=== PATIENT | female | born 1955 | race Caucasian/White ===

== ENCOUNTER 2019-08-25 19:23 | Emergency (ER) | payer MEDICARE, OTHER, SELFPAY ==
[2019-08-25 19:26] VITALS: BP 124/72; PULSE 69; RESP 22; TEMP 36.6; O2SAT 95; BMI 42.9
--- NOTE | 2019-08-25 19:36 | XR_ITS ---
WS: [id number] CHEST XRAY TECHNIQUE: Portable chest. CLINICAL INFORMATION: cough COMPARISON: None. FINDINGS: Heart: Cardiomegaly. Esophageal hiatal hernia with air-fluid level. Lungs: Chronic emphysematous changes. No acute pulmonary infiltrates. Bones: Thoracic curve convex left. Hypertrophic changes thoracic spine. Cholecystectomy clips. XR/XR chest 1V portable [id number] IMPRESSION: 1. Cardiomegaly with esophageal hiatal hernia. 2. No acute pulmonary infiltrates.
--- NOTE | 2019-08-25 19:36 | XR_ITS ---
WS: [id number] ANKLE RIGHT TECHNIQUE: 2 views of the right ankle CLINICAL INFORMATION: fall/injury COMPARISON: None. FINDINGS: Diffuse soft tissue edema. Tibiotalar fracture dislocation with lateral dislocation angulation of the tibial plafond. Comminuted fractures involving the distal fibula and medial malleolus. Anterior tibi al plafond fracture. Diffuse soft tissue edema. Plantar calcaneal spurring. XR/XR ankle RT 2V [id number] IMPRESSION: 1. Tibiotalar fracture dislocation described above with diffuse soft tissue ed julianna.
--- NOTE | 2019-08-25 19:36 | CTR_ITS ---
PROCEDURE INFORMATION: Exam: CT Thoracic Spine Without Contrast Exam date and time: 08/25/2019 8:24 PM Age: 64 years old Clinical indication: Injury or trauma; Fall; Initial encounter; Blunt trauma (contusions or hematomas); Injury details: PT fell 10 ft off porch, railing broke; Additional info: Fall/injury TECHNIQUE: Imaging protocol: Computed tomography images of the thoracic spine without contrast. Total DLP: 2166.1 mGy-cm Radiation optimization: All CT scans at this facility use at least one of these dose optimization techniques: automated exposure control; mA and/or kV adjustment per patient size (includes targeted exams where dose is matched to clinical indication); or iterative reconstruction. COMPARISON: No relevant prior studies available. FINDINGS: Yxkm-ze-gasrnxsr degenerative changes are present in the thoracic spine. No thoracic spine fracture is seen. Spinal alignment is normal A large hiatal hernia is noted. CT/CT thoracic spin wo con* [id number] IMPRESSION: 1. No thoracic spine fracture. 2. Large hiatal hernia. Radiation Dose CTDIVOL = (mGy): DLP = 2166.1 (mGy-cm)
--- NOTE | 2019-08-25 19:36 | XR_ITS ---
WS: [id number] FEMUR RIGHT TECHNIQUE: 2 views of the right femur CLINICAL INFORMATION: fall/injury COMPARISON: None. FINDINGS: Right hip appears normal. Soft tissue overlap. Proximal right femur and distal femur appear normal. R ight TKA. Femoral shaft appears normal. Patellar resurfacing. No evidence of hardware loosening. XR/XR femur RT min 2V* [id number] IMPRESSION: No acute fractures
--- NOTE | 2019-08-25 19:36 | CTR_ITS ---
PROCEDURE INFORMATION: Exam: CT Lumbar Spine Without Contrast Exam date and time: 08/25/2019 8:24 PM Age: 64 years old Clinical indication: Injury or trauma; Fall; Initial encounter; Blunt trauma (contusions or hematomas); Injury details: PT fell 10 ft off porch, railing broke; Additional info: Pain/injury TECHNIQUE: Imaging protocol: Computed tomography images of the lumbar spine without contrast. Total DLP: 2041.69 mGy-cm Radiation optimization: All CT scans at this facility use at least one of these dose optimization techniques: automated exposure control; mA and/or kV adjustment per patient size (includes targeted exams where dose is matched to clinical indication); or iterative reconstruction. COMPARISON: No relevant prior studies available. FINDINGS: [place]taf-xe-[place] degenerative changes are present in the lumbar spine. Mild anterolisthesis of L4 over L5 is noted. Moderate to severe canal stenosis is observed at L4-L5 secondary to chronic changes. Tiny calcifications lateral to the tips of the right L3 and L4 transverse processes may represent avulsion fractures. Anteroposterior hairline lucency in the S1 vertebra is also seen which may represent a fracture or prominent vascular channel. CT/CT lumbar spine wo con* [id number] IMPRESSION: 1. Right L3 and L4 transverse process tip avulsion fractures, age indeterminate. 2. Hairline fracture versus prominent vascular channel in the S1 vertebra. Radiation Dose CTDIVOL = (mGy): DLP = 2041.69 (mGy-cm)
--- NOTE | 2019-08-25 19:37 | CTR_ITS ---
PROCEDURE INFORMATION: Exam: CT Chest With Contrast Exam date and time: 08/25/2019 8:42 PM Age: 64 years old Clinical indication: Injury or trauma; Fall; Initial encounter; Abrasion; Injury details: PT fell 10 ft off [employer] broke TECHNIQUE: Imaging protocol: Computed tomography of the chest with intravenous contrast. Total DLP: 1952.37 mGy-cm Radiation optimization: All CT scans at this facility use at least one of these dose optimization techniques: automated exposure control; mA and/or kV adjustment per patient size (includes targeted exams where dose is matched to clinical indication); or iterative reconstruction. Contrast material: VISIPAQUE 320; Contrast volume: 95 ml; Contrast route: IV; COMPARISON: CT scan of the thoracic spine from earlier today. FINDINGS: Lungs: See Heart finding. Pleural space: Unremarkable. No pneumothorax. No pleural effusion. Heart: The heart is normal in size. Right basilar subsegmental atelectasis is appreciated. No evidence of acute lung injury. Mediastinum: A large hiatal hernia is present. Aorta: Unremarkable. No aortic aneurysm. Lymph nodes: Unremarkable. No enlarged lymph nodes. Bones/joints: Right 4th-9th rib fractures are appreciated. Soft tissues: Unremarkable. IMPRESSION: 1. Right 4th-8th rib fractures. No pneumothorax or acute lung injury. 2. Large hiatal hernia. PROCEDURE INFORMATION: Exam: CT Abdomen And Pelvis With Contrast Exam date and time: 08/25/2019 8:42 PM Age: 64 years old Clinical indication: Injury or trauma; Fall; Initial encounter; Abrasion; Injury details: PT fell 10 ft off [place] TECHNIQUE: Imaging protocol: Computed tomography of the abdomen and pelvis with intravenous contrast. Total DLP: 1952.37 mGy-cm Radiation optimization: All CT scans at this facility use at least one of these dose optimization techniques: automated exposure control; mA and/or kV adjustment per patient size (includes targeted exams where dose is matched to clinical indication); or iterative reconstruction. Contrast material: VISIPAQUE 320; Contrast volume: 95 ml; Contrast route: IV; COMPARISON: CT scan of the lumbar spine from earlier today. FINDINGS: Liver: Normal. No evidence of injury. Gallbladder and bile ducts: The gallbladder has been removed. No biliary ductal dilatation. Pancreas: Normal. No ductal dilation. Spleen: Normal. No evidence of injury. Adrenals: Normal. No mass. Kidneys and ureters: Normal. No hydronephrosis. Stomach and bowel: Unremarkable. No obstruction. No mucosal thickening. Appendix: The appendix is normal. Intraperitoneal space: Unremarkable. No free air. No significant fluid collection. Vasculature: Unremarkable. No abdominal aortic aneurysm. Lymph nodes: Unremarkable. No enlarged lymph nodes. Bladder: Unremarkable as visualized. Reproductive: The uterus is absent. Bones/joints: Slightly offset fractures of the right superior and inferior pubic rami are noted. A lot lucency in the S1 vertebra is again seen. The right SI joint is slightly widened. Small calcifications lateral to the right L3 and L4 transverse processes may represent avulsion fractures. Soft tissues: Small 6 mm oblong hyperdensity in the right lower anterior abdominal wall may be a small hematoma. CT/CT chest abd pel w con* IMPRESSION: 1. No evidence of acute visceral injury in the abdomen or pelvis. 2. Right L3 and L4 transverse process avulsion fractures, possible S1 vertebral body hairline fracture, right superior and inferior pubic rami fractures, and mild right SI joint widening. Radiation Dose CTDIVOL = (mGy): DLP = 1952.37~1952.37 (mGy-cm)
--- NOTE | 2019-08-25 19:37 | CTR_ITS ---
PROCEDURE INFORMATION: Exam: CT Head Without Contrast Exam date and time: 08/25/2019 8:24 PM Age: 64 years old Clinical indication: Injury or trauma; Fall; Initial encounter; Blunt trauma (contusions or hematomas); Consciousness not specified; Injury details: PT fell 10 ft off porch, railing broke; Additional info: [place]/ams TECHNIQUE: Imaging protocol: Computed tomography of the head without contrast. Total DLP: 844.24 mGy-cm Radiation optimization: All CT scans at this facility use at least one of these dose optimization techniques: automated exposure control; mA and/or kV adjustment per patient size (includes targeted exams where dose is matched to clinical indication); or iterative reconstruction. COMPARISON: No relevant prior studies available. FINDINGS: Brain: Mild atrophy and mild white matter chronic microvascular changes are noted. No hemorrhage or CT evidence of acute infarction is seen. Ventricles: Normal. No ventriculomegaly. Bones/joints: Unremarkable. No acute fracture. Sinuses: Visualized sinuses are unremarkable. No fluid levels. Mastoid air cells: Visualized mastoid air cells are well aerated. Soft tissues: Mild soft tissue swelling is seen in the scalp at the vertex. CT/CT head wo con* [id number] IMPRESSION: No acute intracranial abnormality. Radiation Dose CTDIVOL = (mGy): DLP = 844.24 (mGy-cm)
--- NOTE | 2019-08-25 19:37 | CTR_ITS ---
PROCEDURE INFORMATION: Exam: CT Cervical Spine Without Contrast Exam date and time: 08/25/2019 8:24 PM Age: 64 years old Clinical indication: Injury or trauma; Fall; Initial encounter; Blunt trauma; Injury details: PT fell 10 ft off porch, railing broke; Additional info: Pain TECHNIQUE: Imaging protocol: Computed tomography images of the cervical spine without contrast. Total DLP: 639.63 mGy-cm Radiation optimization: All CT scans at this facility use at least one of these dose optimization techniques: automated exposure control; mA and/or kV adjustment per patient size (includes targeted exams where dose is matched to clinical indication); or iterative reconstruction. COMPARISON: No relevant prior studies available. FINDINGS: Degenerative changes are seen in the cervical spine consisting primarily of multilevel bilateral [id number]-rf-ocwasqhr facet osteoarthritis. No canal stenosis. No cervical spine fracture is visualized. Spinal alignment is normal. CT/CT cervical spin wo con* [id number] IMPRESSION: No cervical spine fracture. Radiation Dose CTDIVOL = (mGy): DLP = 639.63 (mGy-cm)
[2019-08-25] MEDS: ondansetron 2 mg/ML SDV 2 mL 4 MG IVP (19:55)
[2019-08-25 19:56] VITALS: RESP 18
[2019-08-25] MEDS: morphine 4 mg/mL SDV 1 mL IVP (19:56)
--- NOTE | 2019-08-25 19:59 | W.ED.FALL ---
HPI - Fall General: Chief Complaint: Fall Stated Complaint: fall Time Seen by Provider: 08/25/19 19:31 History of Present Illness: HPI Narrative: Shari is a 64-year-old female who comes in complaining of right sided pain after she fell off of her porch. The railing gave way causing her to fall approximately 8 to 10 feet landing on her right side. The patient complains of diffuse right-sided pain. She is uncertain if she had loss of consciousness but does not believe so. She denies being on blood thinners. She denies any other complaints or concerns. She complains of chest pain, flank pain, right hip and leg pain. Review of Systems General: Reports: 10 or more systems reviewed and unremarkable except in HPI and below PFSH ED PFSH: Medical History Diabetes mellitus Hypertension Social History Smoking and tobacco status: never smoked Physical Exam Const: COMMON NORMALS: no apparent distress, oriented x3, no limitations, healthy appearing and well nourished EXAM LIMITATIONS: no altered mental status GENERAL APPEARANCE: cooperative, well kempt and well developed ORIENTATION/CONSCIOUSNESS: Yes awake HENMT: COMMON NORMALS: normocephalic, head/scalp atraumatic, hearing grossly normal bilaterally, external ears normal, EAC's normal, external nose normal and moist oral mucous membranes HEAD & SCALP: normal to inspection, normocephalic and atraumatic FACE & SINUS: normal facial exam and face symmetric NOSE: external nose normal and nares normal EXTERNAL EAR: Yes external ears normal EXTERNAL AUDITORY CANAL: EAC's normal MOUTH: oral and palatal mucosa normal and tongue normal Eye: COMMON NORMALS: PERRL, EOMs intact bilaterally, conjunctivae normal and no scleral icterus GENERAL EYE: normal appearance of both eyes and normal light reflex CONJUNCTIVA: Yes conjunctivae normal SCLERA: sclerae normal CORNEA: Yes corneas normal PUPIL: Yes PERRL DIRECT OPHTHALMOSCOPY: Yes normal light reflex Neck/C-Spine: COMMON NORMALS: full ROM, no lymphadenopathy, supple, no meningeal signs and no JVD GENERAL: Yes normal visual inspection and Yes trachea midline CERVICAL SPINE: Yes cervical ROM normal Chest: COMMONS NORMALS: inspection of chest normal and palpation of chest normal Resp: COMMON NORMALS: normal respiratory effort, no retractions, no use of accessory muscles and clear to auscultation bilaterally EFFORT & INSPECTION: Yes able to speak in complete sentences AUSCULTATION: clear to auscultation bilaterally Cardio: COMMON NORMALS: no JVD, regular rate, regular rhythm, S1 normal heart sound, S2 normal heart sound, no gallops, no clicks, no murmurs and no rub JUGULAR VENOUS DISTENTION: no JVD RATE: regular rate RHYTHM: regular rhythm HEART SOUNDS: S1 normal and S2 normal GI: COMMON NORMALS: soft to palpation, no hepatosplenomegaly and no masses PALPATION: Yes soft, Yes tender (Mild diffusely) and Yes no hepatosplenomegaly Back/Pelvis: THORACIC SPINE/UPPER BACK: Yes thoracic spinal tenderness LUMBAR SPINE/LOWER BACK: Yes lumbar spinal tenderness PELVIS: Yes no pain with anterior-posterior compression and Yes tenderness over symphysis pubis Extremity: NARRATIVE EXTREMITY EXAM: Left lower extremity without injury or complaint. Right lower extremity in a flexed position at the hip and knee. No pain on palpation of the leg until the ankle. Ankle has a gross deformity but is neurovascularly intact distal. There are areas of abrasion noted cannot rule out open fracture. Patient has pain at the pubic symphysis. Neuro: COMMON NORMALS: oriented x3, CN's II-XII intact bilaterally, moves all extremities, no focal motor deficits and no sensory deficits noted MENINGEAL SIGNS: Yes no meningeal signs Psych: APPEARANCE: Yes well kempt Skin: COMMON NORMALS: no rashes or lesions noted, skin turgor normal, no jaundice, no petechiae and no mottling GENERAL SKIN EXAM: no rashes or lesions noted and turgor normal Procedures Orthopedic Fracture Reduction Fracture #1: Time Out Performed: Yes Side: right Fracture Reduction Location: tibia Analgesia: procedural sedation Technique: direct manipulation Post Reduction X-rays Demonstrate: anatomical reduction Post-reduction neuro exam: intact Post-reduction vascular exam: intact Splint Applied: Yes Patient Tolerated Procedure: well and no complications Procedural Sedation Indication: fracture/dislocation reduction ASA Class: II Preparation: monitoring specialist applied, pulse oximeter, supplemental O2 applied, suction/airway equipment at bedside and IV secured IV Propofol dose (mg): 150 Patient Tolerated Procedure: well Complications: none Course Vital Signs: Vital signs: Vital Signs Temperature 97.8 F 08/25/19 19:26 Pulse Rate 73 08/25/19 22:14 Respiratory Rate 18 08/25/19 22:14 Blood Pressure 116/63 08/25/19 22:14 Pulse Oximetry 95 08/25/19 22:14 MDM - Fall MDM Narrative: Medical decision making narrative: The case was reviewed with Dr. Bassett, with the patient's pelvic fracture he thinks that she will need transfer to a tertiary care facility. Patient chooses to go to [facility] in [place]. We will check on air ambulance services but we do not believe they are flying secondary to weather. We will attempt to contact [facility]. The case was reviewed with Dr. Corona at [facility] ER, he agrees accept the patient in transfer. We will not place the patient in a pelvic binder but just secured to not allow for any movement of her pelvis during transfer. We will do this with traditional wrapping with sheet. Post reduction x-rays reveal improved alignment from previous. I leave that a bone fragment is prohibiting me from getting 90 degrees at the ankle. I think this is likely to be fixed and surgery as I am unable to get her foot to 90 degrees but there is no lateral subluxation/dislocation and there is minimal subluxation on the lateral view. Lab Data: Attestation: I reviewed the patient's lab results. Labs: Lab Results 08/25/19 08/25/19 08/25/19 Range/Units 20:02 20:02 20:02 WBC 15.3 H (4.0-10.0) 10^3/ uL RBC 3.54 L (4.1-5.3) 10^6/u L Hgb 10.8 L (11.5-15.3) g/dL Hct 34.7 L (37.0-47.0) % MCV 98.0 (81-99) fL MCH 30.5 (28.0-34.0) pg MCHC 31.1 (30.0-36.0) g/dL RDW 13.6 (12.1-15.1) % Plt Count 231 (130-400) 10^3/c mm MPV 10.9 H (7.4-10.4) fL Neut % (Auto) 81.2 % Lymph % (Auto) 11.6 % [place] % (Auto) 4.5 % Eos % (Auto) 1.0 % Baso % (Auto) 0.3 % Neut # (Auto) 12.4 H (1.8-7.7) 10^3/u L Lymph # (Auto) 1.8 (0.8-4.8) 10^3/u L [place] # (Auto) 0.7 (0.2-0.9) 10^3/u L Eos # (Auto) 0.2 (0.0-0.8) 10^3/u L Baso # (Auto) 0.1 (0.0-0.1) 10^3/u L Nucleated RBC % (a uto) 0 % Nucleated RBCs # 0.0 /100WBC PT 13.50 H (10.5-13.3) SECO NDS INR 1.03 (0.8-1.2) APTT (23.9-36.7) SECO NDS Sodium 136 (136-145) mmol/L Potassium 4.6 (3.5-5.1) mmol/L Chloride 102 (98-107) mmol/L Carbon Dioxide 24 (22-29) mmol/L Anion Gap 14.6 (5-19) BUN 24 H (8-23) mg/dL Creatinine 1.2 H (0.5-0.9) mg/dL GFR Calculation 44.9 L (90-130) mL/min Glucose 154 H (65-115) mg/dL Calculated Osmolal ity 282 L (285-295) mOsm/k g Calcium 9.1 (8.5-10.5) mg/dL Total Bilirubin 0.4 (0.15-1.2) mg/dL AST 109 H (0-32) U/L ALT 72 H (0-33) U/L Alkaline Phosphata se 60 (35-105) IU/L Total Protein 6.3 L (6.6-8.7) g/dL Albumin 3.4 L (3.5-5.2) g/dL Globulin 2.9 (1.3-4.6) g/dL 08/25/19 Range/Units 20:02 WBC (4.0-10.0) 10^3/ uL RBC (4.1-5.3) 10^6/u L Hgb (11.5-15.3) g/dL Hct (37.0-47.0) % MCV (81-99) fL MCH (28.0-34.0) pg MCHC (30.0-36.0) g/dL RDW (12.1-15.1) % Plt Count (130-400) 10^3/c mm MPV (7.4-10.4) fL Neut % (Auto) % Lymph % (Auto) % [place] % (Auto) % Eos % (Auto) % Baso % (Auto) % Neut # (Auto) (1.8-7.7) 10^3/u L Lymph # (Auto) (0.8-4.8) 10^3/u L [place] # (Auto) (0.2-0.9) 10^3/u L Eos # (Auto) (0.0-0.8) 10^3/u L Baso # (Auto) (0.0-0.1) 10^3/u L Nucleated RBC % (a uto) % Nucleated RBCs # /100WBC PT (10.5-13.3) SECO NDS INR (0.8-1.2) APTT 25.6 (23.9-36.7) SECO NDS Sodium (136-145) mmol/L Potassium (3.5-5.1) mmol/L Chloride (98-107) mmol/L Carbon Dioxide (22-29) mmol/L Anion Gap (5-19) BUN (8-23) mg/dL Creatinine (0.5-0.9) mg/dL GFR Calculation (90-130) mL/min Glucose (65-115) mg/dL Calculated Osmolal ity (285-295) mOsm/k g Calcium (8.5-10.5) mg/dL Total Bilirubin (0.15-1.2) mg/dL AST (0-32) U/L ALT (0-33) U/L Alkaline Phosphata se (35-105) IU/L Total Protein (6.6-8.7) g/dL Albumin (3.5-5.2) g/dL Globulin (1.3-4.6) g/dL Imaging Data^: CT Head: Radiologist's impression: [address] [address] [address] Scan Report Signed Patient: Belen Espinoza Unit #: [id number] : 1955 Age/Sex: 64 / F ADM Date: 08/25/19 Loc: ER Room/Bed: Attending Dr: Ordering Provider/Ordering MD: Annalee Campbell DO Date of Service: 08/25/19 Procedure(s): CT head wo con* 04677 Accession Number(s): [id number] Report Number: [id number] PROCEDURE INFORMATION: Exam: CT Head Without Contrast Exam date and time: 08/25/2019 8:24 PM Age: 64 years old Clinical indication: Injury or trauma; Fall; Initial encounter; Blunt trauma (contusions or hematomas); Consciousness not specified; Injury details: PT fell 10 ft off porch, railing broke; Additional info: Shelton/ams TECHNIQUE: Imaging protocol: Computed tomography of the head without contrast. Total DLP: 844.24 mGy-cm Radiation optimization: All CT scans at this facility use at least one of these dose optimization techniques: automated exposure control; mA and/or kV adjustment per patient size (includes targeted exams where dose is matched to clinical indication); or iterative reconstruction. COMPARISON: No relevant prior studies available. FINDINGS: Brain: Mild atrophy and mild white matter chronic microvascular changes are noted. No hemorrhage or CT evidence of acute infarction is seen. Ventricles: Normal. No ventriculomegaly. Bones/joints: Unremarkable. No acute fracture. Sinuses: Visualized sinuses are unremarkable. No fluid levels. Mastoid air cells: Visualized mastoid air cells are well aerated. Soft tissues: Mild soft tissue swelling is seen in the scalp at the vertex. CT/CT head wo con* [id number] IMPRESSION: No acute intracranial abnormality. Radiation Dose CTDIVOL = (mGy): DLP = 844.24 (mGy-cm) Dictated By: Víctor Coppola MD Signed By: Víctor Coppola MD Signed Date/Time: 08/25/192033 DD/ 31 CXR: My impression: Patient rotated but no obvious pneumothorax or pulmonary contusion. Questionable right clavicular changes. CT Cervical Spine: Radiologist's impression: [address] [address] [address] Scan Report Signed Patient: Belen Espinoza Unit #: [id number] : 1955 Age/Sex: 64 / F ADM Date: 08/25/19 Loc: ER Room/Bed: Attending Dr: Ordering Provider/Ordering MD: Annalee Campbell DO Date of Service: 08/25/19 Procedure(s): CT cervical spin wo con* [id number] Accession Number(s): [id number] Report Number: [id number] PROCEDURE INFORMATION: Exam: CT Cervical Spine Without Contrast Exam date and time: 08/25/2019 8:24 PM Age: 64 years old Clinical indication: Injury or trauma; Fall; Initial encounter; Blunt trauma; Injury details: PT fell 10 ft off porch, railing broke; Additional info: Pain TECHNIQUE: Imaging protocol: Computed tomography images of the cervical spine without contrast. Total DLP: 639.63 mGy-cm Radiation optimization: All CT scans at this facility use at least one of these dose optimization techniques: automated exposure control; mA and/or kV adjustment per patient size (includes targeted exams where dose is matched to clinical indication); or iterative reconstruction. COMPARISON: No relevant prior studies available. FINDINGS: Degenerative changes are seen in the cervical spine consisting primarily of multilevel bilateral krpf-ka-vuobtzuq facet osteoarthritis. No canal stenosis. No cervical spine fracture is visualized. Spinal alignment is normal. CT/CT cervical spin wo con* [id number] IMPRESSION: No cervical spine fracture. Radiation Dose CTDIVOL = (mGy): DLP = 639.63 (mGy-cm) Dictated By: Víctor Coppola MD Signed By: Víctor Coppola MD Signed Date/Time: 08/25/192044 DD/ 42 CT Thoracic Spine: Radiologist's impression: [address] [address] [address] Scan Report Signed Patient: Belen Espinoza Unit #: [id number] : 1955 Age/Sex: 64 / F ADM Date: 08/25/19 Loc: ER Room/Bed: Attending Dr: Ordering Provider/Ordering MD: Annalee Campbell DO Date of Service: 08/25/19 Procedure(s): CT thoracic spin wo con* [id number] Accession Number(s): [id number] Report Number: [id number] PROCEDURE INFORMATION: Exam: CT Thoracic Spine Without Contrast Exam date and time: 08/25/2019 8:24 PM Age: 64 years old Clinical indication: Injury or trauma; Fall; Initial encounter; Blunt trauma (contusions or hematomas); Injury details: PT fell 10 ft off porch, railing broke; Additional info: Fall/injury TECHNIQUE: Imaging protocol: Computed tomography images of the thoracic spine without contrast. Total DLP: 2166.1 mGy-cm Radiation optimization: All CT scans at this facility use at least one of these dose optimization techniques: automated exposure control; mA and/or kV adjustment per patient size (includes targeted exams where dose is matched to clinical indication); or iterative reconstruction. COMPARISON: No relevant prior studies available. FINDINGS: Ckpi-xc-wvpcqzdl degenerative changes are present in the thoracic spine. No thoracic spine fracture is seen. Spinal alignment is normal A large hiatal hernia is noted. CT/CT thoracic spin wo con* [id number] IMPRESSION: 1. No thoracic spine fracture. 2. Large hiatal hernia. Radiation Dose CTDIVOL = (mGy): DLP = 2166.1 (mGy-cm) Dictated By: Víctor Coppola MD Signed By: Víctor Coppola MD Signed Date/Time: 08/25/192050 DD/ 49 CT Lumbar Spine: Radiologist's impression: [address] [address] [address] Scan Report Signed Patient: Belen Espinoza Unit #: [id number] : 1955 Age/Sex: 64 / F ADM Date: 08/25/19 Loc: ER Room/Bed: Attending Dr: Ordering Provider/Ordering MD: Annalee Campbell DO Date of Service: 08/25/19 Procedure(s): CT lumbar spine wo con* 04751 Accession Number(s): [id number] Report Number: [id number] PROCEDURE INFORMATION: Exam: CT Lumbar Spine Without Contrast Exam date and time: 08/25/2019 8:24 PM Age: 64 years old Clinical indication: Injury or trauma; Fall; Initial encounter; Blunt trauma (contusions or hematomas); Injury details: PT fell 10 ft off porch, railing broke; Additional info: Pain/injury TECHNIQUE: Imaging protocol: Computed tomography images of the lumbar spine without contrast. Total DLP: 2041.69 mGy-cm Radiation optimization: All CT scans at this facility use at least one of these dose optimization techniques: automated exposure control; mA and/or kV adjustment per patient size (includes targeted exams where dose is matched to clinical indication); or iterative reconstruction. COMPARISON: No relevant prior studies available. FINDINGS: Pbvo-pm-cfktgtpr degenerative changes are present in the lumbar spine. Mild anterolisthesis of L4 over L5 is noted. Moderate to severe canal stenosis is observed at L4-L5 secondary to chronic changes. Tiny calcifications lateral to the tips of the right L3 and L4 transverse processes may represent avulsion fractures. Anteroposterior hairline lucency in the S1 vertebra is also seen which may represent a fracture or prominent vascular channel. CT/CT lumbar spine wo con* 06001 IMPRESSION: 1. Right L3 and L4 transverse process tip avulsion fractures, age indeterminate. 2. Hairline fracture versus prominent vascular channel in the S1 vertebra. Radiation Dose CTDIVOL = (mGy): DLP = 2041.69 (mGy-cm) Dictated By: Víctor Coppola MD Signed By: Víctor Coppola MD Signed Date/Time: 08/25/192056 DD/ 55 CT Chest/ABD/Pelvis: Radiologist's impression: [address] [address] [address] Scan Report Signed Patient: Belen Espinoza Unit #: [id number] : 1955 Age/Sex: 64 / F ADM Date: 08/25/19 Loc: ER Room/Bed: Attending Dr: Ordering Provider/Ordering MD: Annalee Campbell DO Date of Service: 08/25/19 Procedure(s): CT chest abd pel w con* Accession Number(s): [id number] Report Number: [id number] PROCEDURE INFORMATION: Exam: CT Chest With Contrast Exam date and time: 08/25/2019 8:42 PM Age: 64 years old Clinical indication: Injury or trauma; Fall; Initial encounter; Abrasion; Injury details: PT fell 10 ft off porContext Relevant, Experenti broke TECHNIQUE: Imaging protocol: Computed tomography of the chest with intravenous contrast. Total DLP: 1952.37 mGy-cm Radiation optimization: All CT scans at this facility use at least one of these dose optimization techniques: automated exposure control; mA and/or kV adjustment per patient size (includes targeted exams where dose is matched to clinical indication); or iterative reconstruction. Contrast material: VISIPAQUE 320; Contrast volume: 95 ml; Contrast route: IV; COMPARISON: CT scan of the thoracic spine from earlier today. FINDINGS: Lungs: See Heart finding. Pleural space: Unremarkable. No pneumothorax. No pleural effusion. Heart: The heart is normal in size. Right basilar subsegmental atelectasis is appreciated. No evidence of acute lung injury. Mediastinum: A large hiatal hernia is present. Aorta: Unremarkable. No aortic aneurysm. Lymph nodes: Unremarkable. No enlarged lymph nodes. Bones/joints: Right 4th-9th rib fractures are appreciated. Soft tissues: Unremarkable. IMPRESSION: 1. Right 4th-8th rib fractures. No pneumothorax or acute lung injury. 2. Large hiatal hernia. PROCEDURE INFORMATION: Exam: CT Abdomen And Pelvis With Contrast Exam date and time: 08/25/2019 8:42 PM Age: 64 years old Clinical indication: Injury or trauma; Fall; Initial encounter; Abrasion; Injury details: PT fell 10 ft off [employer] TECHNIQUE: Imaging protocol: Computed tomography of the abdomen and pelvis with intravenous contrast. Total DLP: 1952.37 mGy-cm Radiation optimization: All CT scans at this facility use at least one of these dose optimization techniques: automated exposure control; mA and/or kV adjustment per patient size (includes targeted exams where dose is matched to clinical indication); or iterative reconstruction. Contrast material: VISIPAQUE 320; Contrast volume: 95 ml; Contrast route: IV; COMPARISON: CT scan of the lumbar spine from earlier today. FINDINGS: Liver: Normal. No evidence of injury. Gallbladder and bile ducts: The gallbladder has been removed. No biliary ductal dilatation. Pancreas: Normal. No ductal dilation. Spleen: Normal. No evidence of injury. Adrenals: Normal. No mass. Kidneys and ureters: Normal. No hydronephrosis. Stomach and bowel: Unremarkable. No obstruction. No mucosal thickening. Appendix: The appendix is normal. Intraperitoneal space: Unremarkable. No free air. No significant fluid collection. Vasculature: Unremarkable. No abdominal aortic aneurysm. Lymph nodes: Unremarkable. No enlarged lymph nodes. Bladder: Unremarkable as visualized. Reproductive: The uterus is absent. Bones/joints: Slightly offset fractures of the right superior and inferior pubic rami are noted. A lot lucency in the S1 vertebra is again seen. The right SI joint is slightly widened. Small calcifications lateral to the right L3 and L4 transverse processes may represent avulsion fractures. Soft tissues: Small 6 mm oblong hyperdensity in the right lower anterior abdominal wall may be a small hematoma. CT/CT chest abd pel w con* IMPRESSION: 1. No evidence of acute visceral injury in the abdomen or pelvis. 2. Right L3 and L4 transverse process avulsion fractures, possible S1 vertebral body hairline fracture, right superior and inferior pubic rami fractures, and mild right SI joint widening. Radiation Dose CTDIVOL = (mGy): DLP = 1952.37 1952.37 (mGy-cm) Dictated By: Víctor Coppola MD Signed By: Víctor Coppola MD Signed Date/Time: 08/25/192111 DD/ 09 Pelvis XR: My impression: Inferior and possibly superior right pubic ramus fracture. Questionable SI joint widening on the right. Rt. Ankle : My impression: Trimalar fracture with dislocation Rt. Ankle Post Reduction : My impression: Improved alignment from previous. Rt. Femur: My impression: No acute fractures. Discharge Plan Discharge Patient Disposition: Xfer Short-Term Hosp Clinical Impression: Multiple rib fractures Qualifiers: Encounter type: initial encounter Fracture type: closed Laterality: right Qualified Code(s): S22.41XA - Multiple fractures of ribs, right side, initial encounter for closed fracture Fracture of transverse process of lumbar vertebra Qualifiers: Encounter type: initial encounter Fracture type: closed Qualified Code(s): S32.009A - Unspecified fracture of unspecified lumbar vertebra, initial encounter for closed fracture Closed pelvic fracture Qualifiers: Encounter type: initial encounter Pelvic bone location: pubis Sublocation of pubis: unspecified portion of pubis Laterality: right Qualified Code(s): S32.501A - Unspecified fracture of right pubis, initial encounter for closed fracture Ankle fracture, right Qualifiers: Encounter type: initial encounter Fracture type: closed Qualified Code(s): S82.891A - Other fracture of right lower leg, initial encounter for closed fracture Condition: Stable Referrals: Kelton Bell MD [Family Provider] - Coding Level of Care Code ED Candle Maker for g Fwd Exam Comprehensive
[2019-08-25 20:14] LABS: Basophils # 0.1 10^3/uL (0.0-0.1); Basophils % 0.3 %; Eosinophils # 0.2 10^3/uL (0.0-0.8); Hematocrit 34.7 % (37.0-47.0); Hemoglobin 10.8 g/dL (11.5-15.3); Lymphocytes # 1.8 10^3/uL (0.8-4.8); Lymphocytes % 11.6 %; Mean Corpuscular HGB Conc 31.1 g/dL (30.0-36.0); Mean Corpuscular Hemoglobin 30.5 pg (28.0-34.0); Mean Platelet Volume 10.9 fL (7.4-10.4); Monocytes # 0.7 10^3/uL (0.2-0.9); Monocytes % 4.5 %; Neutrophils # 12.4 10^3/uL (1.8-7.7); Neutrophils % 81.2 %; Nucleated Red Blood Cells % 0 %; Platelet Count 231 10^3/cmm (130-400); Red Blood Count 3.54 10^6/uL (4.1-5.3); Red Cell Distribution Width 13.6 % (12.1-15.1); White Blood Count 15.3 10^3/uL (4.0-10.0)
[2019-08-25 20:29] LABS: Alanine Aminotransferase 72 U/L (0-33); Albumin Level 3.4 g/dL (3.5-5.2); Alkaline Phosphatase 60 IU/L (35-105); Anion Gap 14.6 (5-19); Aspartate Amino Transferase 109 U/L (0-32); Blood Urea Nitrogen 24 mg/dL (8-23); Calcium 9.1 mg/dL (8.5-10.5); Carbon Dioxide 24 mmol/L (22-29); Chloride 102 mmol/L (98-107); Globulin 2.9 g/dL (1.3-4.6); Glomerular Filtration Rate 44.9 mL/min (90-130); Glucose 154 mg/dL (65-115); Osmolality Calculated 282 mOsm/kg (285-295); Potassium 4.6 mmol/L (3.5-5.1); Sodium 136 mmol/L (136-145); Total Bilirubin 0.4 mg/dL (0.15-1.2); Total Protein 6.3 g/dL (6.6-8.7)
[2019-08-25 20:35] LABS: INR 1.03 (0.8-1.2)
[2019-08-25 21:18] VITALS: BP 130/65; PULSE 64; RESP 18; O2SAT 93
[2019-08-25] MEDS: propofol 10 mg/mL SDV 20 mL 400 MG IVP (21:18)
--- NOTE | 2019-08-25 21:31 | XR_ITS ---
WS: [id number] ANKLE RIGHT TECHNIQUE: 2 views of the right ankle CLINICAL INFORMATION: Post reduction COMPARISON: None. FINDINGS: Splint material. Reduction of the tibiotalar dislocation. Comminuted distal fibular fracture with mil d displacement. Nondisplaced medial malleolar fracture with improved alignment. Improved alignment an kle mortise with asymmetric narrowing laterally. Normal visualized talar dome. Slightly displaced ant erior tibial plafond fracture. Plantar calcaneal spurring. XR/XR ankle RT 2V 36541 IMPRESSION: 1. Post reduction of the tibiotalar dislocation with improved alignment ankle mortise. Persistent mild ankle mortise asymmetry. 2. Slightly displaced distal fibula fracture. Nondisplaced medial malleolus fr acture. 3. Slightly displaced anterior tibial plafond fracture.
[2019-08-25 21:34] LABS: Partial Thromboplastin Time 25.6 SECONDS (23.9-36.7)
[2019-08-25] MEDS: iodixanol 320 mg/mL 100mL Btl IV (21:38)
[2019-08-25] MEDS: sodium chloride 0.9% 1,000 ML 999 ML IV (22:03)
[2019-08-25 22:14] VITALS: BP 116/63; PULSE 73; RESP 18; O2SAT 95
[2019-08-25 22:32] LABS: Add Urine Culture? Yes; Bacteria Urine 1+; Bilirubin Urine Neg (NEGATIVE); Blood Urine 3+ (Negative); Glucose Urine UA Norm (Normal); Ketones Urine Negative (Negative); Leukocyte Esterase Urine Negative (Negative); Nitrate Urine Negative (Negative); Protein Urine Neg (Negative); RBC Urine 80-100 /hpf (0-2); Squamous Epithelial Cell Urine 0-4 (0-5); Urine Appearance Clear (CLEAR); Urine Color Yellow (Yellow); Urobilinogen Urine Norm (Negative); WBC Urine 0-4 /hpf (0-5); pH Urine 5 (5-7)
== END 2019-08-25 22:30 | disposition short-term general hospital (02) ==
PROVIDERS: Emergency Provider Emergency Medicine; Family Provider Family Medicine
DX: S22.41XA Multiple fractures of ribs, right side, initial encounter for closed fracture (principal); S32.038A Other fracture of third lumbar vertebra, initial encounter for closed fracture; S32.048A Other fracture of fourth lumbar vertebra, initial encounter for closed fracture; S32.501A Unspecified fracture of right pubis, initial encounter for closed fracture; S82.891A Other fracture of right lower leg, initial encounter for closed fracture; I10 Essential (primary) hypertension; E11.9 Type 2 diabetes mellitus without complications; W17.89XA Other fall from one level to another, initial encounter; I51.7 Cardiomegaly; K44.9 Diaphragmatic hernia without obstruction or gangrene
CPT/HCPCS: 12345; 27825; 51702; 70450; 71045; 71260; 72125; 72128; 72131; 73552; 73600; 73610; 74177; 80053; 81001; 85025; 85610; 85730; 87086; 96360; 96375; 99283; 99285; A9270; J0131; J0690; J2270; J2405; J2704; J7030; Q9967

== ENCOUNTER 2020-12-30 10:53 | Outpatient (CLI) | payer MEDICARE, OTHER, SELFPAY ==
--- NOTE | 2020-12-30 10:59 | MM_ITS ---
WS: [id number] BILATERAL DIGITAL SCREENING MAMMOGRAPHY WITH CAD CLINICAL INFORMATION: SCREENING HISTORY: Screening mammogram. No current complaints. COMPARISON: TECHNIQUE: Bilateral CC and MLO views. FINDINGS: Scattered fibroglandular densities bilaterally. Punctate and lucent centered calcifications. No suspi cious focal mass, asymmetry, calcifications, or architectural distortion. No evidence of malignancy. MM/[place] [address] IMPRESSION: BI-RADS: 2-Benign FOLLOW UP: 1 Year Follow-up Recommend return to annual screening mammography.
== END 2020-12-30 10:54 | disposition home or self-care (01) ==
LOC: RADSHAW 10:55
PROVIDERS: PCP Family Medicine; Visit Provider Family Medicine
DX: Z12.31 Encounter for screening mammogram for malignant neoplasm of breast (principal)
CPT/HCPCS: 77067

== ENCOUNTER 2021-02-15 07:25 | Outpatient (CLI) | payer MEDICARE, OTHER, SELFPAY ==
[2021-02-15 07:39] VITALS: BMI 39.4
--- NOTE | 2021-02-15 07:40 | ECG_ITS ---
[facility] Test Date: 2021-02-15 Pat Name: Belen Espinoza Department: Room: Gender: Female Secretary Office Clerk: : 1955 Requested By: Erasto Gruber Order Number: [id number] Shaan MD: ERASTO GRUBER Interpretive Statements NAME OF STUDY: LEXISCAN SESTAMIBI STRESS TEST INDICATION: Chest Pain; Shortness of Breath, NOTE: Please note that this is the electrocardiogram portion of the Lexiscan/Sestamibi stress test. The perfusion scan will be documented separately. DATA: Baseline heart rate was 62 beats per minute. Baseline blood pressure was 109/67 millimeters of mercury. Target heart rate was 152. Maximum heart rate achieved was 86. which was 56 % of the predicted target heart rate. Maximum blood pressure was 125/80 millimeters of mercury. The reason for ending the test was completion of the protocol. The patient did not experience any symptoms. ELECTROCARDIOGRAM: BASELINE: Sinus rhythm. Normal axis. Otherwise, no ST-T changes suggestive of ischemia noted. No arrhythmia noted. EXERCISE: After Lexiscan injection, no ST-T changes suggestive of ischemic noted. No arrhythmia noted. CONCLUSION: Please note due to baseline abnormality of the EKG specificity and sensitivity of the EKG portion of LexiScan MIBI stress test will be low 1. EKG not suggestive of ischemia 2. Lexiscan injection unremarkable. 3. Perfusion scan will be documented separately. Electronically Signed On 04-02-2021 19:11:20 PUNCH PRESS OPERATOR HELPER by ERASTO GRUBER [email or web address]/[id number]
--- NOTE | 2021-02-15 07:41 | NMCV_ITS ---
NM rodolfo perf SPECT r/s* [id number] Belen Espinoza Age: 66 Gender: F : 1955 Exam Date: 02/15/2021 08:27 Ordering Phys: Erasto Gruber MD ([email or web address]) Technologist: GERRY Pineda Exam Location: [facility] Indications: SHORTNESS OF BREATH STRESS TEST Please [facility] IMAGE PROTOCOL Rest/Stress 1 Lexiscan Day Radiopharmaceutical Dose (mCi) Administration Site Administered by Rest: Tc-99m 10.9 IV GERRY Pardo Sestamibi Stress:Tc-99m 32.8 IV GERRY Pardo Sestamibi Rest: 15-Feb-2021 60 Discovery 630 Stress: 15-Feb-2021 30 Discovery 630 0.4mg Lexiscan. Images obtained in supine and prone position. SPECT RESULTS Technical Quality: Excellent Raw Data Analysis: Breast attenuation Image Corrections: No attenuation or motion correction applied Summed Stress Score: 2 Summed Rest Score: 1 Summed Difference Score: 1 PERFUSION FINDINGS Small area of moderate to severe reversibility was noted in basal to mid inferior wall. In the absence of wall motion abnormality could be artifact. FUNCTIONAL RESULTS (calculated via Gated SPECT) Stress Image LV EF (%): 74 Stress EDV (mL):85 TID: 1.07 Stress ESV (mL):22 Rest Image LV EF (%): 74 FUNCTIONAL FINDINGS: There is normal left ventricular systolic function. IMPRESSIONS Small area of moderate reversibility noted in basal to mid inferior wall in the absence of wall motion abnormality most likely it is artifact. EKG segment will be documented separately, clinical correlation advised Erasto Gruber MD (Electronically Signed) Final Date: 15 February 2021 14:51 S
[2021-02-15] MEDS: regadenoson 0.4 Mg/5 ml Syringe IVP (09:10)
[2021-02-15 09:22] VITALS: BP 118/61; PULSE 70
== END 2021-02-15 07:26 | disposition home or self-care (01) ==
PROVIDERS: PCP Family Medicine; Visit Provider Internal Medicine Cardiovascular Disease
DX: R07.9 Chest pain, unspecified (principal); R06.02 Shortness of breath
CPT/HCPCS: 78452; 93017; A9500; J2785

== ENCOUNTER 2022-03-02 11:28 | Outpatient (CLI) | payer MEDICARE, OTHER, SELFPAY ==
--- NOTE | 2022-03-02 11:39 | MM_ITS ---
WS: [id number] Bilateral screening 3D tomosynthesis digital mammogram, 03/02/2022 Clinical Data: SCREEN Comparison: 12/30/2020, 04/26/2019, 10/13/2017, 06/01/2016, 05/06/2015, 04/21/2014, 01/09/2013. Findings: The breast parenchymal pattern shows fibroglandular tissue. No spiculated masses or clustered calcifi cations are seen. There are no secondary signs of carcinoma. MM/[place] [id number] Impression: 1. Negative bilateral mammogram unchanged. 2. Recommend annual screening mammograms. BIRADS: 1-Negative FOLLOW UP: 1 Year Follow-up The CAD return checker was used.
== END 2022-03-02 11:29 | disposition home or self-care (01) ==
LOC: RAD 11:29
PROVIDERS: PCP Family Medicine; Visit Provider Family Medicine
DX: Z12.31 Encounter for screening mammogram for malignant neoplasm of breast (principal)
CPT/HCPCS: 77063; 77067

== ENCOUNTER 2022-04-19 12:56 | Outpatient (CLI) | payer MEDICARE, OTHER, SELFPAY ==
--- NOTE | 2022-04-19 13:02 | XR_ITS ---
WS: [id number] SCREENING DEXA SCAN Sanrad CLINICAL INFORMATION: POSTMENOPAUSAL COMPARISON: None. FINDINGS: The L1-L4 bone mineral density measures 1.047 g/cm2. This corresponds to a T score score of -1.1 and Z score of -0.5. Left femoral neck bone mineral density measures 0.715 g/cm2. This corresponds to a T score of -2.3 an d Z score of -1.7. Right femoral neck bone mineral density measures 0.680 g/cm2. This corresponds to a T score -2.6of an d Z score of -2.0. Mean femoral neck bone mineral density measures 0.698 g/cm2. This corresponds to a T score of -2.5 an d Z score of -1.8. XR/XR DEXA axial skeleton* [id number] IMPRESSION: Osteopenia lumbar spine at the lower end of the range. Osteopenia femoral necks at the upper end of the range approaching osteoporosis. Patient's FRAX calculated 10 year probability for major osteoporotic fracture i s 26.3 % and osteoporotic hip fracture is 8.3%.
== END 2022-04-19 12:57 | disposition home or self-care (01) ==
LOC: RAD 12:56
PROVIDERS: PCP Family Medicine; Visit Provider Family Medicine
DX: Z78.0 Asymptomatic menopausal state (principal); M85.88 Other specified disorders of bone density and structure, other site
CPT/HCPCS: 77080

== ENCOUNTER 2023-04-24 08:06 | Outpatient (CLI) | payer MEDICARE, OTHER, SELFPAY ==
--- NOTE | 2023-04-24 08:10 | MM_ITS ---
WS: [id number] BILATERAL SCREENING DIGITAL TOMOSYNTHESIS MAMMOGRAM WITH CAD HISTORY: SCREENING COMPARISON: 03/02/2022 and 12/30/2020 and 04/26/2019 Bilateral CC and MLO views with tomosynthesis and synthetic mammography submitted. Computer aided det ection analyzed. Breast composition: There are scattered areas of fibroglandular density. No suspicious masses, microc alcifications or architectural distortion. Benign calcifications. IMPRESSION: MM/[place] [id number] BI-RADS: 2-Benign FOLLOW UP: 1 Year Follow-up
== END 2023-04-24 08:07 | disposition home or self-care (01) ==
LOC: RAD 08:07
PROVIDERS: PCP Family Medicine; Visit Provider Family Medicine
DX: Z12.31 Encounter for screening mammogram for malignant neoplasm of breast (principal)
CPT/HCPCS: 77063; 77067

== ENCOUNTER 2023-07-03 12:48 | Emergency (ER) | payer MEDICARE, OTHER, SELFPAY ==
[2023-07-03 12:58] VITALS: BP 182/84; PULSE 75; RESP 12; TEMP 36.7; O2SAT 98; BMI 38.6
--- NOTE | 2023-07-03 13:08 | ECG_ITS ---
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 Measurements Intervals [place] Rate: 78 P: 36 [place]: 184 QRS: 24 QRSD: 80 T: 46 QT: 350 QTc: 399 Interpretive Statements SINUS RHYTHM No previous ECG available for comparison Electronically Signed On 07-03-2023 15:43:44 FINANCIAL SERVICES SALES REPRESENTATIVE by Richie Hartman M.D. [id number]
--- NOTE | 2023-07-03 13:14 | PC.NURSE ---
Placed pt on bedside compliance monitor
--- NOTE | 2023-07-03 13:24 | ED_ITS ---
HPI - Dental/Oral 2 General: Chief complaint: Dental/Oral Stated complaint: dizzy, upper back pains Time Seen by Provider: 07/03/23 13:16 Source: patient Mode of arrival: ambulatory History of Present Illness: 68-year-old female presents emergency ro om planing of dizziness when she first sits up or when she is moving around when she lays and said that is fine she gets vertiginous-like symptoms. She reports having had teeth cleaning done 1 week ago she was concerned that she may have gotten infection from not just that she gets pain in her left upper and lower jaw that radiates up into her forehead and on the right side. No fall or trauma no drainage from the teeth no fever sweats or chills. She denies chest pain or shortness of breath. She went to a primary care clinic they were concerned she may have a heart attack and referred her to the emergency room. She is also complaining of some mild discomfort in the left ear Associated symptoms: Reports ear or mastoid pain; Denies fever(s), gum swelling, odynophagia, sore throat, tongue swelling or other Review of Systems 2 Const: Denies: fever(s) ENMT: Reports: ear or mastoid pain; Denies: odynophagia Card: Denies: chest pain Resp: Denies: dyspnea GI: Denies: abdominal pain : Denies: dysuria, urinary frequency or urinary urgency Musc: Denies: neck pain or back pain Skin/Breast: Denies: rash All/Imm: Denies: tongue swelling PFSH ED 2 PFSH: Medical History Anticoagulated Atrial fibrillation Diabetes mellitus Hyperlipidemia Hypertension Surgical History S/P bladder repair Sling S/P cholecystectomy (~08/1988) S/P hysterectomy S/P knee replacement Status post ORIF of fracture of ankle (~08/26/19) Family History Father Dementia Grandfather Cancer Social History Smoking and tobacco/nicotine status: never used tobacco/nicotine Physical Exam 2 Const: COMMON NORMALS: no acute distress GENERAL APPEARANCE: cooperative and comfortable ORIENTATION/CONSCIOUSNESS: Yes awake, Yes oriented to person, Yes oriented to place and Yes oriented to time HENMT: COMMON NORMALS: normocephalic, atraumatic and hearing grossly normal bilaterally HEAD & SCALP: normocephalic and atraumatic Resp: COMMON NORMALS: normal respiratory effort, No retractions, No use of accessory muscles and clear to auscultation bilaterally AUSCULTATION: clear to auscultation bilaterally Cardio: COMMON NORMALS: regular rate, regular rhythm and No murmurs present (Cardio) RATE: regular rate RHYTHM: regular rhythm GI: COMMON NORMALS: Soft to palpation and No hepatosplenomegaly present A USCULTATION: Yes normoactive bowel sounds PALPATION: Yes Soft to palpation, No Tenderness to palpation present (GI), No Guarding due to palpation present (GI) and Yes No hepatosplenomegaly present Extremity: COMMON NORMALS: normal to inspection, capillary refill normal, no clubbing, cyanosis or edema, no calf tenderness and no pedal edema Neuro: SENSORIUM/ORIENTATION: Yes oriented to person, Yes oriented to place and Yes oriented to time Skin: COMMON NORMALS: no rashes or lesions noted GENERAL SKIN EXAM: no rashes or lesions noted Course 2 Vital Signs: Vital signs: Vital Signs Temperature 98.1 F 07/03/23 12:58 Pulse Rate 75 07/03/23 12:58 Respiratory Rate 12 07/03/23 12:58 Blood Pressure 182/84 07/03/23 12:58 Pulse Oximetry 98 07/03/23 12:58 Oxygen Delivery Me thod Room Air 07/03/23 12:58 MDM - Dental/Oral Medical Decision Making EKG unremarkable no acute ST changes. Cardiac enzymes trending negative. Labs reviewed on the chart. Patient's imaging was also unremarkable discharge home with meclizine to use as needed for dizzy symptoms. Additionally she is complaining of tooth pain I do not see any obvious abscess or dental or gingival swelling we will put her on a short course of Augmentin recheck with dentist if not improving Medical Records I reviewed the patient's medical records. Lab Data I reviewed the patient's lab results. 07/03/23 13:44 07/03/23 13:44 Radiology Impressions Thoracic Spine X-Ray 07/03/23 13:32 IMPRESSION: Levocurvature with multilevel vertebral body compression fractures again noted without significant change compared with 08/25/2019 given limitation of plain film visualization. Chest X-Ray 07/03/23 13:33 IMPRESSION: No acute pathology given limited technique. Laboratory Results WBC 8.55 10^3/uL (3.29-11.43) 07/03/23 13:44 RBC 4.57 10^6/uL (3.85-5.65) 07/03/23 13:44 Hgb 13.70 g/dL (11.27-16.99) 07/03/23 13:44 Hct 42.5 % (36-47) 07/03/23 13:44 MCV 93.0 fl (85-98) 07/03/23 13:44 MCH 30.0 pg (27-33) 07/03/23 13:44 MCHC 32.2 g/dL (30-55) 07/03/23 13:44 RDW 13.8 % (12.1-15.1) 07/03/23 13:44 Plt Count 208 10^3/cmm (157-399) 07/03/23 13:44 MPV 10.4 fL (7.4-10.4) 07/03/23 13:44 Neut % (Auto) 73.8 % 07/03/23 13:44 Lymph % (Auto) 17.5 % 07/03/23 13:44 [place] % (Auto) 6.0 % 07/03/23 13:44 Eos % (Auto) 1.9 % 07/03/23 13:44 Baso % (Auto) 0.6 % 07/03/23 13:44 Neut # (Auto) 6.31 10^3/uL (1.8-7.7) 07/03/23 13:44 Lymph # (Auto) 1.5 10^3/uL (0.8-4.8) 07/03/23 13:44 [place] # (Auto) 0.5 10^3/uL (0.2-0.9) 07/03/23 13:44 Eos # (Auto) 0.2 10^3/uL (0.0-0.8) 07/03/23 13:44 Baso # (Auto) 0.1 10^3/uL (0.0-0.1) 07/03/23 13:44 Nucleated RBC % (auto) 0 % 07/03/23 13:44 Nucleated RBCs # 0.0 /100WBC 07/03/23 13:44 Sodium 141 mmol/L (136-145) 07/03/23 13:44 Potassium 4.4 mmol/L (3.5-5.1) 07/03/23 13:44 Chloride 105 mmol/L (98-107) 07/03/23 13:44 Carbon Dioxide 25 mmol/L (22-29) 07/03/23 13:44 Anion Gap 15.4 (5-19) 07/03/23 13:44 BUN 19 mg/dL (8-23) 07/03/23 13:44 Creatinine 0.8 mg/dL (0.5-0.9) 07/03/23 13:44 GFR Calculation 70.9 mL/min (90-130) L 07/03/23 13:44 Glucose 142 mg/dL (65-115) H 07/03/23 13:44 Calculated Osmolality 297 mOsm/kg (285-295) H 07/03/23 13:44 Calcium 8.9 mg/dL (8.5-10.5) 07/03/23 13:44 Total Bilirubin 0.5 mg/dL (0.15-1.2) 07/03/23 13:44 AST 22 U/L (0-32) 07/03/23 13:44 ALT 17 U/L (0-33) 07/03/23 13:44 Alkaline Phosphatase 69 U/L (35-105) 07/03/23 13:44 Troponin T Baseline < 6 ng/L (0-10) 07/03/23 13:44 Troponin T 120 Minute 7.30 ng/L (0-10) 07/03/23 15:48 Delta Troponin T 1.23786 ABS# (0-10) 07/03/23 15:48 Total Protein 6.6 g/dL (6.6-8.7) 07/03/23 13:44 Albumin 3.6 g/dL (3.5-5.2) 07/03/23 13:44 Globulin 3.0 g/dL (1.3-4.6) 07/03/23 13:44 All radiology interpretation(s) finalized by discharge Discharge Plan Discharge Patient Disposition: Home Clinical Impression: Pain, dental, Labyrinthitis Condition: Stable Prescriptions: New meclizine 25 mg tablet 25 mg PO TID PRN (Reason: dizziness) Qty: 20 0RF amoxicillin-pot clavulanate 875-125 mg tablet 1 tab PO BID Qty: 14 0RF No Action multivitamin Tablet 1 tab PO DAILY venlafaxine 75 mg capsule,extended release 24hr 75 mg PO DAILY polyethylene glycol 3350 [Miralax] 17 gram powder in packet 17 gm PO DAILY PRN calcium carbonate [Calcium 500] 500 mg calcium (1,250 mg) tablet 500 mg PO DAILY docusate sodium 100 mg capsule 100 mg PO DAILY PRN esomeprazole magnesium [Nexium] 20 mg capsule,delayed release(DR/EC) 20 mg PO DAILY ascorbic acid (vitamin C) 500 mg capsule 1,000 mg PO DAILY nitroglycerin [Nitrostat] 0.4 mg tablet, sublingual 0.4 mg sublingual Q5M PRN (Reason: chest pain) Qty: 25 3RF Rx Instructions: do not exceed 3 doses per episode pravastatin 80 mg tablet 80 mg PO DAILY Qty: 90 3RF valsartan 160 mg tablet 80 mg PO BID Qty: 90 0RF Rx Instructions: Must have follow-up for further refills isosorbide mononitrate 30 mg tablet extended release 24 hr 15 mg PO BID Qty: 90 0RF Rx Instructions: Must have follow-up for further refills Eliquis 5 mg tablet 5 mg PO BID Qty: 60 1RF Rx Instructions: MUST have follow-up with new provider for further refills carvedilol 12.5 mg tablet 12.5 mg PO BID Qty: 60 0RF Rx Instructions: MUST have follow-up for further refills Discharge Orders: Discharge ED (Routine); Ordered 07/03/23 Ordered By: Sanket Borden Referrals: Kelton Bell MD [Primary Care Provider] - Discharge Diet: Usual diet Discharge Activity: Increase activity as tolerated Patient Instructions: Opioid Safety, Pain Management Activity Restrictions/Additional Instructions: Thank you for choosing [facility] for your healthcare needs today. Please realize this is an emergency room and that we are providing you with a medical screening exam and this may not be complete and all inclusive of all the testing and or work up that you may need to determine your ailment or severity of your illness. It is very important that you follow up as instructed or that you return to the Emergency Department should you have concerns or if your condition changes or worsens in any way. Coding Level of Care Code ED Neurosurgical Nurse Practitioner for Laci Huerta
--- NOTE | 2023-07-03 13:32 | XRR_ITS ---
PROCEDURE INFORMATION: Exam: XR Thoracic Spine Exam date and time: 07/03/2023 1:56 PM Age: 68 years old Clinical indication: Pain in thoracic spine TECHNIQUE: Imaging protocol: Radiologic exam of the thoracic spine. Views: 3 views. COMPARISON: CT thoracic spin wo con* [id number] 08/25/2019 8:33 PM FINDINGS: Bones/joints: Mild levocurvature. Multilevel mild thoracic vertebral body compression fracture deformities involving mid to upper thoracic spine, without definite interval change compared with CT of 08/25/2019. Features of moderate degenerative disc disease also again noted. Soft tissues: No significant soft tissue pathology. XR/XR thoracic spine 3V* [id number] IMPRESSION: Levocurvature with multilevel vertebral body compression fractures again noted without significant change compared with 08/25/2019 given limitation of plain film visualization.
--- NOTE | 2023-07-03 13:33 | XRR_ITS ---
PROCEDURE INFORMATION: Exam: XR Chest Exam date and time: 07/03/2023 2:03 PM Age: 68 years old Clinical indication: Cough and dyspnea; Additional info: Dyspnea/cough TECHNIQUE: Imaging protocol: Radiologic exam of the chest. Views: 1 view. COMPARISON: CT chest abdpel w/*[id number] 08/25/2019 8:45 PM FINDINGS: Lungs: See Heart/Mediastinum finding. Pleural spaces: No pleural effusion. Heart/Mediastinum: 08/25/2019 CT, large hiatal hernia again noted. Overpenetrated exam. No acute pulmonary pathology given this limitation. Cardiomediastinal contours within normal limits. Bones/joints: See accompanying thoracic spine radiograph report for description of spine abnormalities. Intraperitoneal space: Right upper quadrant surgical clips noted. XR/XR chest 1V portable [id number] IMPRESSION: No acute pathology given limited technique.
[2023-07-03 13:50] LABS: Basophils # 0.1 10^3/uL (0.0-0.1); Basophils % 0.6 %; Eosinophils # 0.2 10^3/uL (0.0-0.8); Eosinophils % 1.9 %; Hematocrit 42.5 % (36-47); Lymphocytes # 1.5 10^3/uL (0.8-4.8); Lymphocytes % 17.5 %; Mean Corpuscular HGB Conc 32.2 g/dL (30-55); Mean Platelet Volume 10.4 fL (7.4-10.4); Monocytes # 0.5 10^3/uL (0.2-0.9); Neutrophils # 6.31 10^3/uL (1.8-7.7); Neutrophils % 73.8 %; Nucleated Red Blood Cells % 0 %; Platelet Count 208 10^3/cmm (157-399); Red Blood Count 4.57 10^6/uL (3.85-5.65); Red Cell Distribution Width 13.8 % (12.1-15.1); White Blood Count 8.55 10^3/uL (3.29-11.43)
[2023-07-03 14:05] LABS: Alanine Aminotransferase 17 U/L (0-33); Albumin Level 3.6 g/dL (3.5-5.2); Alkaline Phosphatase 69 U/L (35-105); Anion Gap 15.4 (5-19); Aspartate Amino Transferase 22 U/L (0-32); Blood Urea Nitrogen 19 mg/dL (8-23); Calcium 8.9 mg/dL (8.5-10.5); Carbon Dioxide 25 mmol/L (22-29); Chloride 105 mmol/L (98-107); Glomerular Filtration Rate 70.9 mL/min (90-130); Glucose 142 mg/dL (65-115); Osmolality Calculated 297 mOsm/kg (285-295); Potassium 4.4 mmol/L (3.5-5.1); Sodium 141 mmol/L (136-145); Total Bilirubin 0.5 mg/dL (0.15-1.2); Total Protein 6.6 g/dL (6.6-8.7)
[2023-07-03 15:04] LABS: Troponin(5th) Baseline < 6 ng/L (0-10)
--- NOTE | 2023-07-03 16:52 | ECG_ITS ---
[facility] Test Date: 2023-07-03 Pat Name: Belen Espinoza Department: Room: Gender: Female Sole Ruffer: : 1955 Requested By: Sanket Phelps Order Number: [id number] Shaan MD: Richie Hartman M.D. Measurements Intervals [place] Rate: 77 P: 47 [place]: 180 QRS: 42 QRSD: 81 T: 42 QT: 370 QTc: 421 Interpretive Statements SINUS RHYTHM Compared to ECG 07/03/2023 13:01:53 No significant changes Electronically Signed On 07-03-2023 17:07:33 IT SECURITY ENGINEER by Richie Hartman M.D. [email or web address] medical [id number]
== END 2023-07-03 17:48 | disposition home or self-care (01) ==
PROVIDERS: Emergency Provider Family Medicine; PCP Family Medicine
DX: K08.89 Other specified disorders of teeth and supporting structures (principal); H83.09 Labyrinthitis, unspecified ear; Z79.01 Long term (current) use of anticoagulants; E11.9 Type 2 diabetes mellitus without complications; E78.5 Hyperlipidemia, unspecified; I10 Essential (primary) hypertension
CPT/HCPCS: 36415; 71045; 72072; 80053; 84484; 85025; 93005; 99285

== ENCOUNTER 2024-05-10 12:39 | Outpatient (CLI) | payer MEDICARE, OTHER, SELFPAY ==
--- NOTE | 2024-05-10 12:46 | MM_ITS ---
WS: [id number] BILATERAL 3D TOMOSYNTHESIS DIGITAL SCREENING MAMMOGRAPHY WITH CAD CLINICAL INFORMATION: SCREENING HISTORY: Screening mammogram. No current complaints. COMPARISON: 2022 TECHNIQUE: Bilateral CC and MLO views. FINDINGS: Scattered fibroglandular densities bilaterally. No suspicious focal mass, asymmetry, calcifications, or architectural distortion. No evidence of malignancy. Incidental punctate and lucent centered calci fications. Vascular calcifications. MM/MM scr tomosynthesis [id number] IMPRESSION: DENSITY: There are scattered areas of fibroglandular density. BI-RADS: 2 - Benign. FOLLOW UP: 1 Year Follow-up Recommend return to annual screening mammography.
--- NOTE | 2024-05-10 12:46 | XR_ITS ---
WS: [id number] DEXA (DUAL ENERGY X-RAY ABSORPTIOMETRY) Bone mineral density was performed using a eSNF machine. HISTORY: OSTEOPOROSIS COMPARISON: 04/19/2022 Lumbar spine BMD (L1-L4): 1.042 T score: -1.3 Z score: 0.8 Total hip BMD: Left: 0.715 g/cm2. T score: -2.3 Z score: -1.6 Right: 0.656 g/cm2. T score: -2.8 Z score: -2.1 10 year probability of a major osteoporotic fracture is 19.1%. Compared to the prior study from 05/20/2021. Lumbar spine bone mineral density has decreased by 1.2%. Bilateral hips bone mineral density has decreased by 1.9%. XR/XR DEXA axial skeleton* 22675 IMPRESSION: OSTEOPOROSIS based upon the WHO classification for females. No significant change in bone mineral density within the spine or hips since prior study.
== END 2024-05-10 12:40 | disposition home or self-care (01) ==
LOC: RAD 12:41
PROVIDERS: PCP Family Medicine; Visit Provider Family Medicine
DX: Z12.31 Encounter for screening mammogram for malignant neoplasm of breast (principal); R92.323 Mammographic fibroglandular density, bilateral breasts; R92.1 Mammographic calcification found on diagnostic imaging of breast; Z13.820 Encounter for screening for osteoporosis; M81.0 Age-related osteoporosis without current pathological fracture
CPT/HCPCS: 77063; 77067; 77080